=== PATIENT | male | born 1990 | race Caucasian/White ===

== ENCOUNTER 2020-04-22 15:36 | Inpatient (IN) | payer OTHER, SELFPAY ==
[~2020-04-22] VITALS: Ht 170.2 cm; Wt 45.5 kg
[2020-04-22 15:59] VITALS: Ht 170.2 cm; Wt 45.5 kg
[2020-04-22 17:27] LABS: RED CELL DISTRIBUTION WIDTH 13.9 % (11.5-14.5)
[2020-04-22 17:31] LABS: BASOPHIL % 0 % (0-2); PLATELET COUNT 103 x10^3mcL (130-400)
[2020-04-22 17:53] LABS: BILIRUBIN TOTAL 1.4 mg/dL (0.20-1.00); CARBON DIOXIDE 33.7 mmol/L (21-32); POTASSIUM SERUM 4.4 mmol/L (3.5-5.1)
[2020-04-22 18:06] LABS: TOTAL PROTEIN, SERUM 8.9 g/dL (6.4-8.2)
[2020-04-22 18:07] LABS: CREATININE SERUM 10.2 mg/dL (0.7-1.3)
[2020-04-22] MEDS ORDERED: B COMPLEX1 EACH PO (18:08)
[2020-04-22] MEDS ORDERED: AMLODIPINE BESY10 M2 PO ×2 (18:08→18:12)
[2020-04-22] MEDS ORDERED: ARANESP0.025 MG/1 IJ (18:08)
[2020-04-22] MEDS ORDERED: CARVEDILOL ER40 MG PO (18:09)
[2020-04-22] MEDS ORDERED: DULCOLAX10 M1 RC (18:09)
[2020-04-22] MEDS ORDERED: CLONIDINE HYDR0.1 M1 PO ×2 (18:09→18:13)
[2020-04-22] MEDS ORDERED: DOCUSATE SODIUM (18:09)
[2020-04-22] MEDS ORDERED: MINOXIDIL2.5 MG PO (18:10)
[2020-04-22] MEDS ORDERED: FERROUSAL325 MG PO (18:10)
[2020-04-22] MEDS ORDERED: KRISTALOSE20 GM PO (18:10)
[2020-04-22] MEDS ORDERED: GOOD NEIGH1200 MG/15 PO (18:10)
[2020-04-22] MEDS ORDERED: OXYCONTIN10 M1 PO (18:11)
[2020-04-22] MEDS ORDERED: PANTOPRAZOLE SO40 M1 PO (18:11)
[2020-04-22] MEDS ORDERED: [UNRECOGNIZED DRUG - CODE] PO (18:11)
[2020-04-22] MEDS ORDERED: SENNA8.6 M2 PO (18:11)
[2020-04-22] MEDS ORDERED: RENVELA0.8 GM/Pac (18:12)
[2020-04-22] MEDS ORDERED: SIMETHICONE80 MG PO (18:12)
[2020-04-22] MEDS ORDERED: ARANESP0.025 MG/M IJ (18:12)
[2020-04-22] MEDS ORDERED: ZIN PO (18:13)
[2020-04-22] MEDS ORDERED: CARAFATE1 GM/10 ML PO (18:13)
[2020-04-22] MEDS ORDERED: TYL120S PR (18:13)
[2020-04-22] MEDS ORDERED: OXYCODONE HYDRO10 M1 PO (18:14)
[2020-04-22] MEDS ORDERED: BENADRYL ALLERG25 M1 PO (18:14)
[2020-04-22] MEDS ORDERED: LEVAQUIN750 MG PO (18:14)
[2020-04-22] MEDS ORDERED: PERCOCET1 TA5 PO (18:15)
[2020-04-22 20:41] LABS: FREE T4 1.19 ng/dL (0.76-1.46); T4(THYROXINE) 8.7 ug/dL (4.7-13.3)
[2020-04-22 20:45] LABS: T3 TOTAL 0.54 ng/mL
[2020-04-22 21:42] VITALS: BP 124/72
[2020-04-23 04:55] VITALS: BP 126/83
[2020-04-23 09:55] VITALS: BP 101/55
[2020-04-23 13:23] VITALS: BP 107/64
[2020-04-23 18:14] VITALS: BP 107/77
[2020-04-23 21:26] VITALS: BP 88/49
[2020-04-24 06:24] VITALS: BP 111/62
[2020-04-24 08:20] VITALS: BP 108/53
[2020-04-24 08:36] VITALS: BP 106/58
[2020-04-24 08:41] LABS: BASOPHIL % 0.1 % (0-2); RED CELL DISTRIBUTION WIDTH 13.7 % (11.5-14.5)
[2020-04-24 08:55] LABS: BILIRUBIN TOTAL 1.3 mg/dL (0.20-1.00); CALCIUM 9.8 mg/dL (8.5-10.1); CARBON DIOXIDE 27.4 mmol/L (21-32); MAGNESIUM 1.9 mg/dL (1.8-2.4); PHOSPHOROUS 5.2 mg/dL (2.5-4.9); POTASSIUM SERUM 3.7 mmol/L (3.5-5.1); TOTAL PROTEIN, SERUM 7.8 g/dL (6.4-8.2)
[2020-04-24 08:58] LABS: PLATELET COUNT 86 x10^3mcL (130-400)
[2020-04-24 10:06] LABS: ALBUMIN 2.3 g/dL (3.4-5.0)
[2020-04-24 12:05] VITALS: BP 96/55
[2020-04-24 16:15] VITALS: BP 119/66
[2020-04-24 21:30] VITALS: BP 106/64
[2020-04-25 06:01] VITALS: BP 93/52
[2020-04-25 07:27] LABS: BASOPHIL % 0.1 % (0-2); RED CELL DISTRIBUTION WIDTH 14.1 % (11.5-14.5)
[2020-04-25 07:44] LABS: CALCIUM 10.6 mg/dL (8.5-10.1); CARBON DIOXIDE 27.2 mmol/L (21-32); MAGNESIUM 1.9 mg/dL (1.8-2.4); PHOSPHOROUS 4.7 mg/dL (2.5-4.9); POTASSIUM SERUM 3.6 mmol/L (3.5-5.1)
[2020-04-25 07:53] LABS: CREATININE SERUM 5.2 mg/dL (0.7-1.3)
[2020-04-25 08:37] LABS: PLATELET COUNT 83 x10^3mcL (130-400)
[2020-04-25 09:23] VITALS: BP 107/66
[2020-04-25 12:11] VITALS: BP 106/70
[2020-04-25 17:30] VITALS: BP 111/81
[2020-04-25 22:57] VITALS: BP 133/92
[2020-04-26 05:38] VITALS: BP 99/55
[2020-04-26 06:55] LABS: BASOPHIL % 0.3 % (0-2); RED CELL DISTRIBUTION WIDTH 13.9 % (11.5-14.5)
[2020-04-26 07:38] LABS: BILIRUBIN TOTAL 1.3 mg/dL (0.20-1.00); CALCIUM 10.1 mg/dL (8.5-10.1); CARBON DIOXIDE 24.2 mmol/L (21-32); PHOSPHOROUS 5.6 mg/dL (2.5-4.9); POTASSIUM SERUM 4.2 mmol/L (3.5-5.1); TOTAL PROTEIN, SERUM 7.5 g/dL (6.4-8.2)
[2020-04-26 07:44] LABS: CREATININE SERUM 7.1 mg/dL (0.7-1.3)
[2020-04-26 07:55] LABS: PLATELET COUNT 86 x10^3mcL (130-400)
[2020-04-26 08:41] VITALS: BP 113/84
[2020-04-26 13:59] VITALS: BP 112/70
[2020-04-26 20:41] VITALS: BP 122/86
[2020-04-27 06:32] VITALS: BP 104/65
[2020-04-27 08:51] LABS: RED CELL DISTRIBUTION WIDTH 14.4 % (11.5-14.5)
[2020-04-27 09:13] VITALS: BP 117/80
[2020-04-27 10:34] LABS: MONOCYTE 2 % (0-7); SEGMENTED NEUTROPHILS 88 % (37-75); rbc morphology (normal/abnorm) NORMAL (NORMAL)
[2020-04-27 10:40] LABS: PLATELET COUNT 71 x10^3mcL (130-400)
[2020-04-27 11:57] LABS: CALCIUM 9.7 mg/dL (8.5-10.1); CARBON DIOXIDE 23.4 mmol/L (21-32); MAGNESIUM 1.8 mg/dL (1.8-2.4); PHOSPHOROUS 5.3 mg/dL (2.5-4.9); POTASSIUM SERUM 4.3 mmol/L (3.5-5.1)
[2020-04-27 12:09] LABS: CREATININE SERUM 5.5 mg/dL (0.7-1.3)
[2020-04-27 12:27] VITALS: BP 109/58
[2020-04-27 17:27] VITALS: BP 150/78
[2020-04-27 20:43] VITALS: BP 108/61
[2020-04-28 01:34] VITALS: BP 116/85
[2020-04-28 06:04] VITALS: BP 101/63
[2020-04-28 09:05] VITALS: BP 87/51
[2020-04-28 09:41] LABS: BASOPHIL % 0.1 % (0-2); RED CELL DISTRIBUTION WIDTH 14.2 % (11.5-14.5)
[2020-04-28 09:48] LABS: PLATELET COUNT 57 x10^3mcL (130-400)
[2020-04-28 10:05] LABS: CALCIUM 9.3 mg/dL (8.5-10.1); CARBON DIOXIDE 21.9 mmol/L (21-32); POTASSIUM SERUM 3.6 mmol/L (3.5-5.1)
[2020-04-28 10:13] LABS: CREATININE SERUM 7.5 mg/dL (0.7-1.3)
[2020-04-28 12:28] VITALS: BP 108/69
[2020-04-28 17:20] VITALS: BP 109/64
[2020-04-28 21:06] VITALS: BP 131/87
[2020-04-29 06:24] VITALS: BP 126/89
[2020-04-29 06:41] LABS: BASOPHIL % 0.1 % (0-2); RED CELL DISTRIBUTION WIDTH 14.3 % (11.5-14.5)
[2020-04-29 06:58] LABS: PLATELET COUNT 68 x10^3mcL (130-400)
[2020-04-29 07:24] LABS: CALCIUM 10.7 mg/dL (8.5-10.1); CARBON DIOXIDE 25.9 mmol/L (21-32); PHOSPHOROUS 5.9 mg/dL (2.5-4.9); POTASSIUM SERUM 4.3 mmol/L (3.5-5.1)
[2020-04-29 07:36] LABS: CREATININE SERUM 5.1 mg/dL (0.7-1.3)
[2020-04-29 09:06] VITALS: BP 128/86
[2020-04-29 12:40] VITALS: BP 103/65
[2020-04-29 16:40] VITALS: BP 111/70
[2020-04-29 21:24] VITALS: BP 108/69
[2020-04-30 05:54] VITALS: BP 122/80
[2020-04-30 06:44] LABS: BASOPHIL % 0.2 % (0-2); RED CELL DISTRIBUTION WIDTH 14.5 % (11.5-14.5)
[2020-04-30 06:55] LABS: CALCIUM 11.3 mg/dL (8.5-10.1); CARBON DIOXIDE 30.2 mmol/L (21-32); CREATININE SERUM 3.8 mg/dL (0.7-1.3)
[2020-04-30 07:00] LABS: PLATELET COUNT 86 x10^3mcL (130-400)
[2020-04-30 09:08] VITALS: BP 109/77
[2020-04-30 12:58] VITALS: BP 110/73
[2020-04-30 17:01] VITALS: BP 107/68
[2020-04-30 19:38] VITALS: BP 119/75
[2020-05-01 05:36] VITALS: BP 117/75
[2020-05-01 06:30] LABS: RED CELL DISTRIBUTION WIDTH 14.3 % (11.5-14.5)
[2020-05-01 06:40] LABS: BASOPHIL % 0 % (0-2); PLATELET COUNT 98 x10^3mcL (130-400)
[2020-05-01 06:48] LABS: CALCIUM 10.8 mg/dL (8.5-10.1); CARBON DIOXIDE 27.2 mmol/L (21-32); PHOSPHOROUS 5.7 mg/dL (2.5-4.9); POTASSIUM SERUM 4.3 mmol/L (3.5-5.1)
[2020-05-01 07:38] LABS: CREATININE SERUM 6.2 mg/dL (0.7-1.3)
[2020-05-01 13:35] VITALS: BP 101/66
[2020-05-01 17:35] VITALS: BP 119/81
[2020-05-01 20:10] VITALS: BP 118/52
[2020-05-02 06:20] VITALS: BP 113/85
[2020-05-02 08:06] LABS: CALCIUM 10.6 mg/dL (8.5-10.1); CARBON DIOXIDE 29.2 mmol/L (21-32); CREATININE SERUM 3.8 mg/dL (0.7-1.3); MAGNESIUM 1.9 mg/dL (1.8-2.4); POTASSIUM SERUM 3.5 mmol/L (3.5-5.1)
[2020-05-02 08:22] LABS: C REACTIVE PROTEIN 36.6 mg/dL (<=0.9)
[2020-05-02 08:35] VITALS: BP 115/92
[2020-05-02 12:54] LABS: RED CELL DISTRIBUTION WIDTH 14.4 % (11.5-14.5)
[2020-05-02 13:00] LABS: BASOPHIL % 0 % (0-2); PLATELET COUNT 125 x10^3mcL (130-400)
[2020-05-02 13:23] VITALS: BP 122/90
[2020-05-02 18:31] VITALS: BP 116/80
[2020-05-02 20:45] VITALS: BP 131/93
[2020-05-02 21:00] VITALS: BP 125/86
[2020-05-03 06:27] VITALS: BP 116/86
[2020-05-03 09:41] VITALS: BP 128/95
[2020-05-03 13:53] VITALS: BP 133/97
[2020-05-03 18:40] VITALS: BP 123/95
[2020-05-03 21:19] VITALS: BP 124/86
[2020-05-04 06:32] VITALS: BP 135/95
[2020-05-04 09:04] LABS: CALCIUM 10.9 mg/dL (8.5-10.1); CARBON DIOXIDE 28.3 mmol/L (21-32); PHOSPHOROUS 4.1 mg/dL (2.5-4.9); POTASSIUM SERUM 3.5 mmol/L (3.5-5.1)
[2020-05-04 09:08] LABS: CREATININE SERUM 4.3 mg/dL (0.7-1.3)
[2020-05-04 09:20] VITALS: BP 146/101
[2020-05-04 10:15] LABS: C REACTIVE PROTEIN 5.3 mg/dL (<=0.9)
[2020-05-04 10:48] LABS: BASOPHIL % 0 % (0-2); PLATELET COUNT 191 x10^3mcL (130-400); RED CELL DISTRIBUTION WIDTH 14.2 % (11.5-14.5)
[2020-05-04 12:50] VITALS: BP 119/84
[2020-05-04 17:25] VITALS: BP 122/86
[2020-05-04 21:42] VITALS: BP 130/89
[2020-05-05 06:06] VITALS: BP 120/90
[2020-05-05 08:19] LABS: CALCIUM 10.6 mg/dL (8.5-10.1); CARBON DIOXIDE 23.7 mmol/L (21-32); MAGNESIUM 2.2 mg/dL (1.8-2.4); PHOSPHOROUS 5.3 mg/dL (2.5-4.9); POTASSIUM SERUM 3.8 mmol/L (3.5-5.1)
[2020-05-05 08:42] LABS: CREATININE SERUM 5.9 mg/dL (0.7-1.3)
[2020-05-05 09:10] VITALS: BP 103/65
[2020-05-05 11:19] LABS: BASOPHIL % 0.1 % (0-2); PLATELET COUNT 202 x10^3mcL (130-400); RED CELL DISTRIBUTION WIDTH 13.8 % (11.5-14.5)
[2020-05-05 13:33] VITALS: BP 107/79
[2020-05-05 18:16] VITALS: BP 119/84
[2020-05-05 19:35] VITALS: BP 137/82
[2020-05-06 06:02] VITALS: BP 127/91
[2020-05-06 06:58] LABS: BASOPHIL % 0.3 % (0-2); PLATELET COUNT 202 x10^3mcL (130-400); RED CELL DISTRIBUTION WIDTH 13.7 % (11.5-14.5)
[2020-05-06 07:32] LABS: CALCIUM 9.8 mg/dL (8.5-10.1); CARBON DIOXIDE 21.2 mmol/L (21-32); MAGNESIUM 2.1 mg/dL (1.8-2.4); PHOSPHOROUS 6.2 mg/dL (2.5-4.9)
[2020-05-06 07:34] LABS: CREATININE SERUM 7.4 mg/dL (0.7-1.3)
[2020-05-06 08:36] VITALS: BP 121/88
[2020-05-06] MEDS ORDERED: CARVEDILOL12.5 M1 PO (10:17)
[2020-05-06] MEDS ORDERED: CAT0.1 PO (10:17)
[2020-05-06] MEDS ORDERED: AMITIZA24 MC1 PO (10:18)
[2020-05-06] MEDS ORDERED: NOR10 PO (10:18)
[2020-05-06] MEDS ORDERED: MIRUD PO (10:19)
[2020-05-06] MEDS ORDERED: SEN PO (10:20)
[2020-05-06] MEDS ORDERED: NEP PO (10:20)
[2020-05-06] MEDS ORDERED: ELIQUIS2.5 MG PO (10:22)
[2020-05-06] MEDS ORDERED: MEDROL DOSEPAK4 MG PO (10:22)
[2020-05-06 13:03] VITALS: BP 152/90
[2020-05-06 16:01] VITALS: BP 152/90
[2020-05-06 18:06] VITALS: BP 138/96
== END 2020-05-06 20:37 | disposition home or self-care (01) | DRG 720 ==
LOC: ED 15:36 → DU 19:25
PROVIDERS: Internal Medicine; Internal Medicine Nephrology; Specialist; Student in an Organized Health Care Education/Training Program; ADMIT Family Medicine; ATTEND Family Medicine
PROC: 5A1D70Z Performance of Urinary Filtration, Intermittent, Less than 6 Hours Per Day (ICD-10-PCS; principal; 2020-04-23)
PROC: 5A1D70Z Performance of Urinary Filtration, Intermittent, Less than 6 Hours Per Day (ICD-10-PCS; 2020-04-24)
PROC: 5A1D70Z Performance of Urinary Filtration, Intermittent, Less than 6 Hours Per Day (ICD-10-PCS; 2020-04-26)
PROC: 5A1D70Z Performance of Urinary Filtration, Intermittent, Less than 6 Hours Per Day (ICD-10-PCS; 2020-04-28)
PROC: 5A1D70Z Performance of Urinary Filtration, Intermittent, Less than 6 Hours Per Day (ICD-10-PCS; 2020-04-29)
PROC: 5A1D70Z Performance of Urinary Filtration, Intermittent, Less than 6 Hours Per Day (ICD-10-PCS; 2020-05-01)
PROC: 5A1D70Z Performance of Urinary Filtration, Intermittent, Less than 6 Hours Per Day (ICD-10-PCS; 2020-05-03)
PROC: 5A1D70Z Performance of Urinary Filtration, Intermittent, Less than 6 Hours Per Day (ICD-10-PCS; 2020-05-06)
DX: A41.89 Other specified sepsis (principal); U07.1 COVID-19; J96.00 Acute respiratory failure, unspecified whether with hypoxia or hypercapnia; D69.6 Thrombocytopenia, unspecified; R64 Cachexia; E44.0 Moderate protein-calorie malnutrition; E87.8 Other disorders of electrolyte and fluid balance, not elsewhere classified; I12.0 Hypertensive chronic kidney disease with stage 5 chronic kidney disease or end stage renal disease; N18.6 End stage renal disease; E83.39 Other disorders of phosphorus metabolism; E83.52 Hypercalcemia; J12.89 Other viral pneumonia; Z68.1 Body mass index [BMI] 19.9 or less, adult; D63.1 Anemia in chronic kidney disease; N39.0 Urinary tract infection, site not specified; K59.00 Constipation, unspecified; Z93.3 Colostomy status; Z79.899 Other long term (current) drug therapy
CPT/HCPCS: 36600; 83880; 84439; 85378; 87804; 97110-GP; 97112-GP; 97116-GP; 97530-GP; G0378; J0456; J0696; J1100; J1200; J1650; J1885; J2270; J2405; J2543; J3370; J3590; J7030; J7050; Q0092; U0003-CS